=== PATIENT | male | born 1980 | race African-American/Black ===

== ENCOUNTER 2021-03-13 14:30 | Emergency (ER) | payer SELFPAY ==
[~2021-03-13] VITALS: Ht 175.3 cm; Wt 83.0 kg
[2021-03-13 15:30] VITALS: BP 122/89
[2021-03-13] MEDS ORDERED: IBUPROFEN 400MG TABLET PO ONE (15:30)
== END 2021-03-13 18:23 | disposition home or self-care (01) ==
LOC: ER 14:30
DX: U07.1 COVID-19 (principal); Z98.890 Other specified postprocedural states
CPT/HCPCS: 87070; 87426; 87430; 99283